=== PATIENT | male | born 1980 | race Caucasian/White ===

== ENCOUNTER 2023-06-21 09:24 | Day surgery (SDC) | payer BC ==
[~2023-06-21 09:24] MED LIST: Lactated Ringers 1,000 ML IV SCH; propofoL 50 ML ONE
[2023-06-21] MEDS ORDERED: propofoL 50 ML ONE (12:21)
[2023-06-21] MEDS ORDERED: Propofol 200 MG/20 ML SDV ONE (13:15)
== END 2023-06-21 13:45 | disposition home or self-care (01) ==
LOC: MW.SDS 09:24
PROVIDERS: ATTEND Surgery
DX: K22.89 Other specified disease of esophagus (principal); K29.50 Unspecified chronic gastritis without bleeding; K21.00 Gastro-esophageal reflux disease with esophagitis, without bleeding; D12.6 Benign neoplasm of colon, unspecified; K22.2 Esophageal obstruction; K44.9 Diaphragmatic hernia without obstruction or gangrene; K64.8 Other hemorrhoids; Z88.0 Allergy status to penicillin
CPT/HCPCS: 43239; 43249; 45380; C1726; J2704; J7120; 00813